=== PATIENT | male | born 1975 | race Caucasian/White ===

== ENCOUNTER 2019-01-12 20:16 | Emergency (ER) | payer SELFPAY ==
[~2019-01-12] VITALS: Ht 182.9 cm; Wt 88.1 kg
--- OUTSIDE RECORDS SUMMARY | ~2019-01-12 | XMS | Clinical Summary ---
Demographics + + + | Address | [address] | | | [place] [address] | + + + | Home Phone | | + + + | Preferred Language | Unknown | + + + | Marital Status | | + + + | Caodaism Affiliation | 1025 | + + + | Race | Unknown | + + + | Ethnic Group | Unknown | + + + Author + + + | Author | [facility] (Historical as of | | | 11-28-18) | + + + | Organization | [facility] (Historical as of | | | 11-28-18) | + + + | Address | Unknown | + + + | Phone | Unavailable | + + + Support + + +---------+ + | Name | Relationship | Address | Phone | + + +---------+ + | Noni Davalos | ECON | Unknown | | + + +---------+ + Care Team Providers + +------+ + | Care Regulator Pin Inserter Name | Role | Phone | + +------+ + | Radha Ruiz PA-C | PP | | + +------+ + Allergies No Known Allergies Current Medications + + +--------+---------+------+------+-------+ | Prescription | Sig. | Disp. | Refills | Star | End | Statu | | | | | | t | Date | s | | | | | | Date | | | + + +--------+---------+------+------+-------+ | buPROPion | Take 150 mg by mouth | | | | | Activ | | (WELLBUTRIN SR) 150 | 2 (two) times | | | | | e | | MG 12 hr tablet | daily. | | | | | | + + +--------+---------+------+------+-------+ | fish oil omega-3 | Take 1 g by mouth | | | | | Activ | | fatty acids 1000 MG | daily. | | | | | e | | capsule | | | | | | | + + +--------+---------+------+------+-------+ | Multiple | Take 1 tablet by | | | | | Activ | | Vitamins-Minerals | mouth daily. | | | | | e | | (MULTIVITAMIN WITH | | | | | | | | MINERALS) tablet | | | | | | | + + +--------+---------+------+------+-------+ | | Take 1-2 tablets by | 40 | 0 | 05/0 | | Activ | | oxyCODONE-acetaminop | mouth every 4 (four) | tablet | | 7/20 | | e | | hen (PERCOCET) 5-325 | hours as needed for | | | 18 | | | | MG per tablet | Pain for up to 20 | | | | | | | | doses. | | | | | | + + +--------+---------+------+------+-------+ Active Problems + + + | Problem | Noted Date | + + + | Rupture of right distal biceps tendon | 08/06/2017 | + + + + + | Overview: Added automatically from request for surgery [id number] | + + Family History + + +------+ + | Medical History | Relation | Name | Comments | + + +------+ + | Cancer | Mother | | | + + +------+ + + +------+--------+ + | Relation | Name | Status | Comments | + +------+--------+ + | Father | | Alive | | + +------+--------+ + | Mother | | Alive | | + +------+--------+ + Social History + +-------+ +--------+------+ | Tobacco Use | Types | Packs/Day | Years | Date | | | | | Used | | + +-------+ +--------+------+ | Former Smoker | | 1 | 3 | | + +-------+ +--------+------+ + +---+---+---+ | Smokeless Tobacco: | | | | | Never Used | | | | + +---+---+---+ + + +---------+ + | Alcohol Use | Drinks/We | oz/Week | Comments | | | ek | | | + + +---------+ + | No | | | | + + +---------+ + + + + | Sex Assigned at | Date Recorded | | | | + + + | Not on file | | + + + Last Filed Vital Signs + + + + | Vital Sign | Reading | Time Taken | + + + + | Blood Pressure | 134/86 | 09/26/2017 8:45 AM PDT | + + + + | Pulse | 64 | 09/26/2017 8:45 AM PDT | + + + + | Temperature | 37 C (98.6 F) | 08/18/2017 7:10 PM PDT | + + + + | Respiratory Rate | 19 | 08/18/2017 7:10 PM PDT | + + + + | Oxygen Saturation | 98% | 09/26/2017 8:45 AM PDT | + + + + | Inhaled Oxygen | - | - | | Concentration | | | + + + + | Weight | 86.2 kg (190 lb) | 09/26/2017 8:45 AM PDT | + + + + | Height | 182.9 cm (6') | 09/26/2017 8:45 AM PDT | + + + + | Body Mass Index | 25.77 | 09/26/2017 8:45 AM PDT | + + + + Plan of Treatment + + + + + | Health Maintenance | Due Date | Last Done | Comments | + + + + + | Vaccine: | | | | | Dtap/Tdap/Td (1 - | 4 | | | | Tdap) | | | | + + + + + | Vaccine: Influenza | | | | | (#1) | 9 | | | + + + + + Implants + +------+------+ +--------+--------+--------+ | Implanted | Type | Area | Manufacture | Device | Expira | Model | | | | | r | | tion | / | | | | | | Identi | Date | Serial | | | | | | fier | | / Lot | + +------+------+ +--------+--------+--------+ | Biocomposite Distal Biceps | | | ARTHREX | | 08/11/ | AR-226 | | RepairImplanted: Qty: 1 on | | | | | 2018 | 0BC / | | 08/18/2017 by Shawn Cisneros | | | | | | /[id number] | | MD Adi | | | | | | 395 | + +------+------+ +--------+--------+--------+ Results Not on filefrom Last 3 Months Insurance + +--------+ +------+-------+---------+ | Payer | Benefi | Subscriber | Type | Phone | Address | | | t Plan | ID | | | | | | / | | | | | | | Group | | | | | + +--------+ +------+-------+---------+ | [employer] | ODS | [id number] | | | | | | HEALTH | | | | | | | PLAN | | | | | + +--------+ +------+-------+---------+ + +--------+ +--------+ + + | Guarantor Name | Accoun | Relation to | Date | Phone | Billing Address | | | t Type | Patient | of | | | | | | | | | | + +--------+ +--------+ + + | KWESI DAVALOS | Person | Self [birth year] | Home: | [address] | | | al/Fam | | 1975 | [phone] [place] [address] | | | [place] | | | 1975 | | + +--------+ +--------+ + +"
--- OUTSIDE RECORDS SUMMARY | ~2019-01-12 | XMS | Clinical Summary ---
Demographics + + + | Address | [address] | | | [place] [address] | + + + | Home Phone | | + + + | Preferred Language | Unknown | + + + | Marital Status | Single | + + + | Congregational Affiliation | Unknown | + + + | Race | White | + + + | Ethnic Group | Not or | + + + Author + + + | Author | [facility] | + + + | Organization | [facility] | + + + | Address | Unknown | + + + | Phone | Unavailable | + + + Support + + +---------+ + | Name | Relationship | Address | Phone | + + +---------+ + | Noni Nichols | ECON | Unknown | | + + +---------+ + Care Team Providers + +------+ + | Care Combination Machine Tender Name | Role | Phone | + +------+ + | Nadja Bone | PCP | | + +------+ + Source Comments DONNA is fully live on both [facility] Ambulatory and [facility] InPatient.[facility] Allergies Not on File Medications Not on file Active Problems Not on file Social History + +-------+ +--------+------+ | Tobacco Use | Types | Packs/Day | Years | Date | | | | | Used | | + +-------+ +--------+------+ | Never Assessed | | | | | + +-------+ +--------+------+ + + + | Sex Assigned at | Date Recorded | | | | + + + | Not on file | | + + + + + + + | Job Start Date | Occupation | Industry | + + + + | Not on file | Not on file | Not on file | + + + + + + + + | Travel History | Travel Start | Travel End | + + + + + + | No recent travel history available. | + + Last Filed Vital Signs Not on file Plan of Treatment + + + + + | Health Maintenance | Due Date | Last Done | Comments | + + + + + | Influenza (Flu) | | | | | vaccination (#1) | 9 | | | + + + + + | Pneumococcal | Aged Out | | No longer eligible | | vaccination | | | based on patient's | | | | | age to complete this | | | | | topic | + + + + + Results Not on filefrom Last 3 Months Insurance + +--------+ +--------+-------+---------+--------+ | Payer | Benefi | Subscriber | Effect | Phone | Address | Type | | | t Plan | ID | kassie | | | | | | / | | Dates | | | | | | Group | | | | | | + +--------+ +--------+-------+---------+--------+ | BREAD OVEN OPERATOR MEDICAID | BREAD OVEN OPERATOR | [id number] | Effect | | | Medica | | | EASTER | | [place]ie | | | id | | | [place] | | for | | | | | | | | all | | | | | | | | dates | | | | + +--------+ +--------+-------+---------+--------+ + +--------+ +--------+ + + | Guarantor Name | Accoun | Relation to | Date | Phone | Billing Address | | | t Type | Patient | of | | | | | | | | | | + +--------+ +--------+ + + | Jim Nichols | Person | Self [birth year] | [address] | | | al/Fam | | 1976 | [phone] | [place] [address] | | | [place] | | | 5 (Home) | | + +--------+ +--------+ + +"
--- OUTSIDE RECORDS SUMMARY | ~2019-01-12 | XMS | Clinical Summary ---
Demographics + + + | Address | [address] | | | [place] [address] | + + + | Home Phone | | + + + | Preferred Language | Unknown | + + + | Marital Status | Single | + + + | Gnosticist Affiliation | Unknown | + + + | Race | White | + + + | Ethnic Group | Not or | + + + Author + + + | Author | [facility] | + + + | Organization | [facility] | + + + | Address | Unknown | + + + | Phone | Unavailable | + + + Support + + +---------+ + | Name | Relationship | Address | Phone | + + +---------+ + | Noni Nichols | ECON | Unknown | | + + +---------+ + Care Team Providers + +------+ + | Care Orderlies Teacher Name | Role | Phone | + +------+ + | Nadja Bone | PCP | | + +------+ + Source Comments DONNA is fully live on both [facility] Ambulatory and [facility] InPatient.[facility] Allergies Not on File Medications Not on [...] | | | + +--------+ +--------+-------+---------+--------+ | TAPE TRANSFERRER MEDICAID | TAPE TRANSFERRER | xxxxxxxx | Effect | | | [...] | 1976 | [phone] | [place] [address] | | | [place] | | | [place] (Home) | | + +--------+ +--------+ + +"
--- OUTSIDE RECORDS SUMMARY | ~2019-01-12 | XMS | Encounter Summary ---
Demographics + + + | Address | [address] | | | [place] [address] | + + + | Home Phone | | + + + | Preferred Language | Unknown | + + + | Marital Status | Single | + + + | Christianity Affiliation | Unknown | + + + | Race | White | + + + | Ethnic Group | Not or | + + + Author + + + | Author | [facility] | + + + | Organization | [facility] | + + + | Address | Unknown | + + + | Phone | Unavailable | + + + Support + + +---------+ + | Name | Relationship | Address | Phone | + + +---------+ + | Noni Nichols | ECON | Unknown | | + + +---------+ + Care Team Providers + +------+ + | Care Hard Candy Spinner Name | Role | Phone | + +------+ + | Nadja BoneP | PCP | | + +------+ + Encounter Details +--------+ + + + + | Date | Type | Department | Care Team | Description | +--------+ + + + + | 09/18/ | Document-Sc | Dermatology at | [facility], | | | 2016 | anned | [facility] | ,PhD | | | | | Clinic [address] | | | | | [address] [place] | | | | | | [address] | | | | | | [phone] | | | +--------+ + + + + Social History + +-------+ +--------+------+ | [...] recent travel history available. | + + documented as of this encounter Plan of Treatment Not on filedocumented as of this encounter Visit Diagnoses Not on filedocumented in this encounter"
--- OUTSIDE RECORDS SUMMARY | ~2019-01-12 | XMS | Clinical Summary ---
Demographics + + + | Address | [address] | | | [place] [address] | + + + | Home Phone | | + + + | Preferred Language | Unknown | + + + | Marital Status | | + + + | Latter Day Affiliation | 1025 | + + + | Race | Unknown | + + + | Ethnic Group | Unknown | + + + Author + + + | Author | [facility] (Historical as of | | | 11-28-18) | + + + | Organization | [facility] (Historical as of | | | 11-28-18) [...] Team Providers + +------+ + | Care Manufacturing Finance Manager Name | Role | Phone | + [...] Overview: Added automatically from request for surgery [id number] | + + Family History + + [...] Cisneros | | | | | | /[id number] | | MD Adi | | | [...] | [employer]AN | ODS | [id number] | | | | | | HEALTH [...] | 1975 | [phone] | [place] [address] | | | [place] | | | 1975 | | + +--------+ +--------+ + +"
--- OUTSIDE RECORDS SUMMARY | ~2019-01-12 | XMS | Encounter Summary ---
Demographics + + + | Address | [address] | | | [place] [address] | + + + | Home Phone | | + + + | Preferred Language | Unknown | + + + | Marital Status | Single | + + + | Baptist Affiliation | Unknown | + + + | Race | White | + + + | Ethnic Group | Not or | + + + Author + + + | Author | [facility] | + + + | Organization | [facility] | + + + | Address | Unknown | + + + | Phone | Unavailable | + + + Support + + +---------+ + | Name | Relationship | Address | Phone | + + +---------+ + | Noni Nichols | ECON | Unknown | | + + +---------+ + Care Team Providers + +------+ + | Care Control Systems Developer Name | Role | Phone | + [...] [place] | | | | | | [address] | | | | | | [phone] | | | +--------+ + + + [...]
[2019-01-12] MEDS ORDERED: BACTRIM DS TAB1 EACH PO (22:46)
[2019-01-12] MEDS ORDERED: CEPHALEXIN500 MG PO (22:46)
== END 2019-01-12 22:57 | disposition home or self-care (01) ==
LOC: ED 20:16
DX: L08.9 Local infection of the skin and subcutaneous tissue, unspecified (principal); Z87.891 Personal history of nicotine dependence
CPT/HCPCS: 73560; 99283

== ENCOUNTER 2023-05-09 13:58 | Emergency (ER) | payer OTHER ==
[~2023-05-09] VITALS: Ht 182.9 cm; Wt 90.0 kg
[~2023-05-09 13:58] MED LIST: ACETAMINOPHEN500 MG PO; ADDERALL 10 MG10 MG PO; BACTRIM DS TAB1 EACH PO; CEPHALEXIN500 MG PO; IBUPROFEN600 MG PO; OXYCODON-ACETA1 EAC2 PO; WEEKLY-D1250 MCG PO
--- OUTSIDE RECORDS SUMMARY | 2023-05-09 14:00 | XMS ---
PreManage Notification: KWESI DAVALOS Security Housefellow Events No recent Security Events currently on file [facility] There are no care providers on record at this time. Yobany has no Care Guidelines for this patient. Leticia VISIT COUNT (12 MO.) 1 BRINDA Singh TOTAL 1 NOTE: Visits indicate total known visits. ED/C VISIT TRACKING (12 MO.) 05/09/2023 13:58 BRINDA Singer OR TYPE: Emergency COMPLAINT: - CUT RIGHT THUMB INPATIENT VISIT TRACKING (12 MO.) No inpatient visits to display in this time frame [email or web address]
[2023-05-09] MEDS ORDERED: CEPHALEXIN500 M1 PO (14:45)
[2023-05-09 15:10] VITALS: BP 160/78
== END 2023-05-09 15:08 | disposition home or self-care (01) ==
LOC: ED 13:58
DX: S61.011A Laceration without foreign body of right thumb without damage to nail, initial encounter (principal); W27.0XXA Contact with workbench tool, initial encounter; Z87.891 Personal history of nicotine dependence; Z79.899 Other long term (current) drug therapy
CPT/HCPCS: 99282

== ENCOUNTER 2023-12-24 12:44 | Emergency (ER) | payer OTHER ==
[~2023-12-24] VITALS: Ht 182.9 cm; Wt 88.4 kg
[~2023-12-24 12:44] MED LIST changes: +CEPHALEXIN500 M1 PO
[2023-12-24] MEDS ORDERED: TESTOSTERO200 MG/1 M IM (15:14)
[2023-12-24] MEDS ORDERED: TADALAFIL5 M1 PO (15:14)
[2023-12-24 15:17] VITALS: BP 157/109
== END 2023-12-24 15:19 | disposition home or self-care (01) ==
LOC: ED 12:44
DX: S46.212A Strain of muscle, fascia and tendon of other parts of biceps, left arm, initial encounter (principal); X50.0XXA Overexertion from strenuous movement or load, initial encounter; Z79.899 Other long term (current) drug therapy; Z87.891 Personal history of nicotine dependence
CPT/HCPCS: 99283

== ENCOUNTER 2024-01-12 05:40 | Day surgery (SDC) | payer OTHER ==
[~2024-01-12] VITALS: Ht 182.9 cm; Wt 88.4 kg
[~2024-01-12 05:40] MED LIST changes: +LACTATED RINGER'S 1,000 ML IV SCH; +TADALAFIL5 M1 PO; +TESTOSTERO200 MG/1 M IM
[2024-01-12] MEDS ORDERED: FAMOTIDINE 20 MG/ 2 ML VIAL ONE (05:52)
[2024-01-12] MEDS ORDERED: fentaNYL citrate 100 MCG/2 ML VIAL ONE (05:52)
[2024-01-12] MEDS ORDERED: LACTATED RINGER'S 1,000 ML IV ONE (05:52)
[2024-01-12] MEDS ORDERED: METOCLOPRAMIDE HCL 10 MG/2 ML SDV ONE (05:52)
[2024-01-12] MEDS ORDERED: ondansetron HCL 4 MG/2 ML VIAL ONE (05:52)
[2024-01-12] MEDS ORDERED: KETOROLAC TROMETHAMINE 30 MG/ML VIAL ONE (05:52)
[2024-01-12] MEDS ORDERED: DEXAMETHASONE SOD PHOS 4 MG/ML VIAL ONE (05:52)
[2024-01-12] MEDS ORDERED: MIDAZOLAM HCL 2 MG/2 ML VIAL ONE (05:52)
[2024-01-12] MEDS ORDERED: propofoL 200 MG/20 ML VIAL ONE (05:52)
[2024-01-12] MEDS ORDERED: BUPIVACAINE HCL 0.5% 30 ML VIAL ONE (05:55)
[2024-01-12] MEDS ORDERED: CloNIDine HCl/Pf 1,000 MCG/10 ML VIAL ONE (05:55)
[2024-01-12] MEDS ORDERED: LIDOCAINE HCL 2% 5 ML SDV ONE (05:55)
[2024-01-12 05:58] VITALS: BP 164/97
[2024-01-12 06:01] VITALS: BP 164/97
[2024-01-12] MEDS ORDERED: K2 PLUS D3 TAB1 EACH PO (06:04)
[2024-01-12] MEDS ORDERED: L-LYSINE500 M1 PO (06:06)
[2024-01-12] MEDS ORDERED: DAILY VITE1 EAC1 PO (06:06)
[2024-01-12] MEDS ORDERED: MILK THISTLE175 M2 PO (06:07)
[2024-01-12] MEDS ORDERED: L-PHENYLALANIN500 MG PO (06:07)
[2024-01-12 06:39] LABS: BASOPHILS 1.2 % (0-2); HEMATOCRIT 49.1 % (35.0-50.0); HEMOGLOBIN 16.7 g/dL (12.0-18.0); LYMPHOCYTES 28.7 % (24-44); MCH 30.9 (27-36); MCHC 34.1 g/dl (30-36); MCV 90.7 fl (81-99); NEUTROPHILS 59.1 % (39-80); PLATELET COUNT 236 K/uL (140-440); RBC 5.41 M/ul (4.3-5.7); RDW 14.1 (10.5-15.0)
[2024-01-12 06:50] LABS: ANION GAP 12.4 (7-21); BUN/CREATININE RATIO 13.82 (6.0-28.6); CREATININE, SERUM 0.94 mg/dL (0.70-1.30); POTASSIUM 4.4 mmol/L (3.5-5.1)
[2024-01-12] MEDS ORDERED: LIDOCAINE HCL 1% 5 ML SDV INJ ONE (07:00)
[2024-01-12] MEDS ORDERED: IBLOOD GLUCOSE TEST STRIP 1 EA TEST VI PRN ×2 (07:00→07:45)
[2024-01-12] MEDS ORDERED: CEFAZOLIN SODIUM 2 GM/20 ML SYR IV SCH (07:00)
[2024-01-12] MEDS ORDERED: HYDROCODONE/ACETA 7.5/325 TAB PO PRN (07:00)
[2024-01-12] MEDS ORDERED: TRANEXAMIC ACID 2,000 MG in SODIUM CHLORIDE 0.9% 100 ML IV SCH (07:00)
--- NOTE | 2024-01-12 07:21 | NUR ---
PT GONE FOR PROCEDURE. PROVIDED PRAYER.
[2024-01-12] MEDS ORDERED: droPERidol 5 MG/2 ML VIAL IV PRN (07:45)
[2024-01-12] MEDS ORDERED: PROCHLORPERAZINE EDISYLATE 10 MG/2 ML VIAL IV PRN (07:45)
[2024-01-12] MEDS ORDERED: MORPHINE SULFATE 10 MG/ML VIAL IV PRN (07:45)
[2024-01-12] MEDS ORDERED: METOCLOPRAMIDE HCL 10 MG/2 ML SDV IV PRN (07:45)
[2024-01-12] MEDS ORDERED: NALOXONE HCL 0.4 MG SYR IV PRN (07:45)
[2024-01-12] MEDS ORDERED: ondansetron HCL 4 MG/2 ML VIAL IV PRN (07:45)
[2024-01-12] MEDS ORDERED: fentaNYL citrate 50 MCG/ML SDV IV PRN (07:45)
[2024-01-12] MEDS ORDERED: METOPROLOL TARTRATE 5 MG/5 ML VIAL ONE (07:50)
[2024-01-12] MEDS ORDERED: CELECOXIB 200 MG CAP PO SCH (08:00)
[2024-01-12] MEDS ORDERED: TRANEXAMIC ACID 1,000 MG/10 ML AMP ONE (08:17)
[2024-01-12] MEDS ORDERED: ACETAMINOPHEN 1,000 MG/100 ML VIAL ONE (08:44)
--- NOTE | 2024-01-12 09:09 | NUR ---
01/12/24 0909 Ariana Barnard 0847 PT TO PACU AWAKE AND ALERT REPORTS PAIN 10/10 TYLENOL GIVEN BY MICHELA TILLMAN.
[2024-01-12 09:31] VITALS: BP 111/74
--- NOTE | 2024-01-12 09:35 | NUR ---
patient returns to room 7 from PACU on bed. patient is awake, alert, and oriented upon arrival. he is drinking fluids and denies any nausea at this time. he rates his pain to his left arm a 4/10 when previously directly after surgery it was a 10/10. pudding given to patient for something to eat per patietn request. vital signs taken and wdl. he denies any dizziness. he is reporting tingling to left fingers and unable to feel touch at this time, but is able to move his fingers. I explained discharge criteria for him and he is agreeable. bed is in lowest position, call light within reach. He would like to stand and try to urinate. patient ambulated to restroom with a steady gait and denies any dizziness or light headedness.
[2024-01-12] MEDS ORDERED: HYDROCODON-ACE1 EA11 PO (09:40)
[2024-01-12] MEDS ORDERED: CELECOXIB200 MG PO (09:40)
--- NOTE | 2024-01-12 11:00 | NUR ---
PATIENT AT THIS TIME HAS MET ALL DISCHARGE CRITERIA. HE HAS VOIDED, EATEN/DRANK, AMBULATED, DENIES NAUSEA/VOMITING, AND REPORTS THAT HIS PAIN IS AT A TOLERABLE LEVEL. VITAL SIGNS REASSESSED AND ARE WDL. PATIENT EXPRESSED THE DESIRE TO GO HOME. PATIENT IS ALLOWED TO GET DRESSED AT THIS TIME
[2024-01-12 11:02] VITALS: BP 123/74
--- NOTE | 2024-01-12 11:15 | NUR ---
PATIENT DRESSED. REVIEWED DISCHARGE INSTRUCTIONS IN DETAIL AND ANSWERED ALL QUESTIONS PATIENT AND SPOUSE HAD. PATIENT EXPRESSED UNDERSTANDING OF ALL DISCHARGE TEACHING. PATIENT IS DISCHARGED VIA WHEELCHAIR IN THE CARE OF HIS .
--- NOTE | 2024-01-16 06:52 | OR ---
[facility] [address] [facility] [place], [place] [address] Signed DATE OF OPERATION: 01/12/2024 SURGEON: Kirby Barnard MD PREOPERATIVE DIAGNOSIS: Left distal biceps rupture. POSTOPERATIVE DIAGNOSIS: Left distal biceps rupture. PROCEDURE PERFORMED: Left distal biceps repair. COAT IRONER HAND: Katharina Fernandes PA-C. Katharina was present and critical for all portions of procedure. ANESTHESIA: General. BLOOD LOSS: Minimal. TOURNIQUET TIME: 64 minutes. IMPLANTS: Arthrex distal biceps kit. BRIEF HISTORY: Kwesi is a 48-year-old gentleman, who suffered a rupture of his distal biceps about two weeks ago. MRI confirmed this. Risks, benefits, and alternatives of surgery were discussed with him and he elected to proceed. PROCEDURE IN DETAIL: Once consent was obtained, he was taken to the operating room. After adequate anesthesia, he was placed on the operating table with a hand table. The arm was then prepped and draped in a standard sterile fashion and a sterile tourniquet was applied. The arm was exsanguinated using Esmarch bandage and tourniquet inflated to 200 mmHg. A 4 cm incision was made transversely 4 cm distal to the antecubital crease. This was Electronically Signed By: KIRBY BARNARD MD 01/16/24 0652 PATIENT NAME: KWESI DAVALOS OPERATIVE REPORT DATE OF : 73 REPORT #: [id number] PHYSICIAN: KIRBY BARNARD MD PCP: COOKIE LOCKE PAC REPORT IS CONFIDENTIAL AND NOT TO BE RELEASED WITHOUT AUTHORIZATION [facility] [address] [place], [place] [address] Signed carried through the skin and subcutaneous tissue. The dissection was then taken through the skin and subcutaneous tissue and directly down through the fascia. Using blunt dissection, we developed the tunnel down to the radial tuberosity. The tuberosity was cleaned of soft tissue. Then we went to find the tendon. In the process, we found the tendon scarred anteriorly in a large bundle of scar. In the process of dissecting this out, we did tear a vein. This was then isolated and tied off with 2-0 silk sutures. The tendon was then dissected free and the nerve was dissected, although it was caught in a lot of scar tissue. It was not resected and was structurally intact. The biceps was then mobilized from the scar tissue proximally. It was brought down into the wound and the scar tissue surrounding the distal end was removed. This was then shaped and a fiber loop suture was used to make Krackow sutures through it. This was done over the distal 3 cm. Once this was completed, the biceps was further dissected free of overlying soft tissue proximally using digital dissection only. The approach then was made back to the tuberosity and this was identified under loupe magnification and was cleared of soft tissue. The 3.2 drill pit was then placed in the center of the tuberosity and a bicortical hole was made. This was then over-reamed using the 7 mm reamer. Once this was accomplished, the two suture ends of the fiber loop were cut and placed through the Endobutton in a reversing manner. Once this was completed, the Endobutton was passed through the two drill holes in the radius. It was then flipped on the opposite side and tightened. With the elbow flexed about 30 degrees, the biceps was tightened down to its insertion on the tuberosity. One suture limb was then placed through the tendon itself and they were tied. Again, the other suture end was placed around the biceps distally and was tied. We attempted to place the interference screw, however, it would not fit due to the bulk of the biceps. The wound was copiously irrigated and the tourniquet was released. There was no significant bleeding. The wound was again copiously irrigated with normal saline, closed with 2-0 Monocryl for the subcutaneous tissue and 3-0 Stratafix for the skin. The wound was then dressed with an Allevyn dressing, ABDs and an Uche wrap. He was placed in a hinged elbow brace. He tolerated the procedure well. All sponge, needle, and instrument counts were correct. Kirby Barnard MD BA/MODL /[id number] Electronically Signed By: KIRBY BARNARD MD 01/16/24 0652 PATIENT NAME: KWESI DAVALOS OPERATIVE REPORT DATE OF : 73 REPORT #: [id number] PHYSICIAN: KIRBY BARNARD MD PCP: COOKIE LOCKE [facility] REPORT IS CONFIDENTIAL AND NOT TO BE RELEASED WITHOUT AUTHORIZATION [facility] [address] [place] [id number] Signed Copies: ~ Electronically Signed By: KIRBY BARNARD MD 01/16/24 0652 PATIENT NAME: KWESI DAVALOS OPERATIVE REPORT DATE OF : 73 REPORT #: [id number] PHYSICIAN: KIRBY BARNARD MD PCP: COOKIE LOCKE PAC REPORT IS CONFIDENTIAL AND NOT TO BE RELEASED WITHOUT AUTHORIZATION
== END 2024-01-12 11:25 | disposition home or self-care (01) ==
LOC: DS 05:40
PROVIDERS: Nurse Anesthetist, Certified Registered; ATTEND Specialist
PROC: 0LQ40ZZ Repair Left Upper Arm Tendon, Open Approach (ICD-10-PCS; principal; 2024-01-12 07:00)
DX: S46.212A Strain of muscle, fascia and tendon of other parts of biceps, left arm, initial encounter (principal); I10 Essential (primary) hypertension; G43.909 Migraine, unspecified, not intractable, without status migrainosus; Z87.891 Personal history of nicotine dependence; Z79.899 Other long term (current) drug therapy
CPT/HCPCS: 01710; 36415; 64417; 80048; 85025; C1713; J0131; J0690; J0735; J1100; J1885; J2001; J2250; J2405; J2704; J2765; J3010; J7121